=== PATIENT | male | born 1935 | race Caucasian/White ===

== ENCOUNTER → 2017-02-06 | Outpatient (CLI) | payer OTHER ==
[~2017-02-06] VITALS: Ht 170.2 cm; Wt 86.2 kg
[~2017-02-06] MED LIST: ADULT LOW DOSE81 MG PO; AMLODIPINE BESYL5 MG PO; ANSAID100 MG PO; ASPIR 8181 MG PO; CARVEDILOL12.5 MG PO; CENTRUM SILVER1 EAC4 PO; ELIQUIS5 MG PO; ENDOCET 10-3251 EACH PO; FINASTERIDE5 MG PO; LISINOPRIL20 MG PO; LISINOPRIL40 MG PO; MELATONIN 5 MG1 EAC1 PO; MELATONIN3 MG; MULTIPLE VITAM1 EAC4; NEURONTIN 300300 M1 PO; OMEPRAZOLE 20 M20 M1 PO; POTASSIUM GLUC500 MG PO; PRAVASTATIN SOD80 MG PO; PRILOSEC 20 MG20 MG PO; SENOKOT-S1 TA1 PO; SLOW FE142 MG PO; STOOL SOFTENER100 M1 PO; STOOL SOFTENER100 MG PO; TEMAZEPAM15 MG PO; VITAMIN D31000 UNI2 PO; ZOLOFT50 MG PO
--- NOTE | ~2017-02-06 | P ---
[facility] [place] [address] PROCEDURE REPORT Name: JEANETTE AIKEN Room #: REG [facility]#: [id number] Admission: 02/06/17 Attend Phys: Olayinka Byrne MD Discharge: Date of : 39 Report #: [id number] THIS REPORT FOR: //name// CC: Marilyn Byrne OUTPATIENT UPPER ENDOSCOPY REPORT BRIEF HISTORY: The patient is a 81-year-old male who has been treated for an iron deficiency anemia. He was recently found to have Hemoccult positive stool. PREOPERATIVE DIAGNOSES: Anemia and Hemoccult positive stool. POSTOPERATIVE DIAGNOSES: 1. Moderate diffuse gastritis. 2. Small hiatus hernia. MEDICATIONS: Deep sedation with propofol per anesthesia. SPECIMEN: Biopsies of gastritis. ESTIMATED BLOOD LOSS: 3 mL. PROCEDURE: EGD with biopsy. FINDINGS: Prior to propofol sedation, procedure of upper endoscopy discussed with the patient as well as potential risks and its complications. He indicates he understands and desires to proceed. DESCRIPTION OF PROCEDURE: With the patient in left lateral decubitus position, Fuji video endoscope was inserted in the cervical esophagus under direct vision without difficulty. Examination of this organ to its entire length revealed normal esophageal mucosa down the squamocolumnar junction. The squamocolumnar junction was unremarkable. There were no ulcers, erosions or [place] mucosa. No bleeding lesions were seen. A small hiatus hernia was seen. Scope was advanced into the stomach, which was examined on end views as well as retroflexed views. There is a moderate diffuse gastritis with linear configuration, most notable in the antrum of stomach. No ulcers were seen. No bleeding lesions were seen. Upon retroflexion, no mass lesions were seen. The pylorus, duodenal bulb and postbulbar sweep were inspected and noted to be unremarkable. No ulcers were seen. No bleeding lesions were seen. Multiple small bowel biopsies were obtained to evaluate for celiac disease from the duodenum. We also obtained biopsies of gastritis. At that point, the scope was slowly withdrawn, and careful circumferential views confirmed the above findings. The patient tolerated the procedure well. [facility] [address] [place] [address] PROCEDURE REPORT Name: ATTILAJEANETTE J [id number] Admission: 02/06/17 Attend Phys: Olayinka Byrne MD Discharge: Date of : 39 Report #: [id number] CONDITION OF THE PATIENT UPON DISCHARGE: Following procedure, the patient was drowsy and prepared for colonoscopy. Given instructions to the patient and family at the time of discharge. This patient has been on Eliquis. He does take an aspirin daily. He did have Hemoccult positive stools. He has been treated for iron deficiency anemia with iron replacement. No bleeding lesions seen on the upper end. We will proceed with colonoscopy. <ELECTRONICALLY SIGNED> By: Olayinka Byrne MD 02/06/17 1644 [id number] Olayinka Byrne MD /nt
--- NOTE | ~2017-02-06 | P ---
[facility] [place] [address] PROCEDURE REPORT Name: JEANETTE AIKEN Room #: REG [facility]#: [id number] Admission: 02/06/17 Attend Phys: Olayinka Byrne MD Discharge: Date of : 39 Report #: [id number] THIS REPORT FOR: //name// CC: Marilyn Byrne BRIEF HISTORY: The patient is a 81-year-old male who is on Eliquis. He has been recently found to have an anemia, requiring iron replacement. He also was recently found to have Hemoccult positive stools, but no gross rectal bleeding. He does have a history of colon polyps with last colonoscopy in 2011. PREOPERATIVE DIAGNOSES: Hemoccult positive stools and iron deficiency anemia. POSTOPERATIVE DIAGNOSES: 1. A 5-mm polyp, mid transverse colon. 2. Moderate sigmoid diverticulosis coli. 3. Melanosis coli, moderate, diffuse 4. Internal hemorrhoids. MEDICATIONS: Deep sedation with propofol per anesthesia. SPECIMEN: Mid transverse colon polyp. ESTIMATED BLOOD LOSS: 3 mL. PROCEDURE: Colonoscopy to cecum and terminal ileum with snare polypectomy. FINDINGS: Prior to propofol sedation, procedure of colonoscopy discussed with the patient as well as potential risks, benefits, and complications. He indicates he understands and desires to proceed. With the patient in left lateral decubitus position, digital examination was completed, which revealed no abnormalities. Subsequently, the Blast Ramp video colonoscope was introduced into the rectum and advanced under direct vision to the cecum. Done with minimal difficulty. The cecum was identified by the ileocecal valve and the appendiceal orifice. I was able to advance the scope into the mouth of the ileocecal valve and see a villous pattern, but due to angulation, we could not deeply intubate the ileum. At that point, the scope was slowly withdrawn and careful circumferential views were obtained including retroflexing the scope in the ascending colon. Upon slow withdrawal of the scope, the mucosa was inspected. The patient was noted to have a pattern of moderate melanosis coli throughout the entire colon. In addition, as we withdrew the scope, a 5-mm polyp was seen in the mid transverse colon and removed by cold snare polypectomy. The scope was further withdrawn and no additional polypoid lesions were seen. In the left colon, in particularly the sigmoid colon, there was a moderately severe diverticular disease without [address] [address] PROCEDURE REPORT Name: JEANETTE AIKEN Room #: REG [facility]#: [id number] Admission: 02/06/17 Attend Phys: Olayinka Byrne MD Discharge: Date of : 39 Report #: [id number] endoscopic evidence of diverticulitis. Scope was withdrawn in the rectum. Upon retroflexion, [id number] internal hemorrhoids were seen. Scope was withdrawn. The patient tolerated the procedure well. CONDITION OF THE PATIENT UPON DISCHARGE: Following procedure, the patient drowsy, aroused, conversant and will be discharged home when fully ambulatory. INSTRUCTIONS TO THE PATIENT AND FAMILY AT THE TIME OF DISCHARGE: The patient with iron deficiency anemia and Hemoccult positive stools. I do not see a bleeding lesion. He did have a small polyp. Polyp is small, but he is on anticoagulation, it is a potential source of blood loss. Another possibility is hemorrhoids as well. At this point in time, we will follow up on the path report and make further recommendations. However, at this point in life, the patient is not likely to benefit from routine surveillance colonoscopy due to finding of colon polyps. He will follow up with Dr. Marilyn Hernandez to monitor his hemoglobin, iron levels, and iron replacement as needed. If there is further evidence of blood loss or iron deficiency, next GI evaluation would likely be an M2 capsule study of the small bowel. Last colonoscopy was 5 years ago. Withdrawal time from the cecum was 14 minutes. <ELECTRONICALLY SIGNED> By: Olayinka Byrne MD 02/06/17 1644 [id number] Olayinka Byrne MD /nt
== END | disposition home or self-care (01) ==
LOC: GI 07:34
DX: K63.5 Polyp of colon (principal); K57.30 Diverticulosis of large intestine without perforation or abscess without bleeding; K63.89 Other specified diseases of intestine; K64.8 Other hemorrhoids; K29.70 Gastritis, unspecified, without bleeding; K44.9 Diaphragmatic hernia without obstruction or gangrene; G47.33 Obstructive sleep apnea (adult) (pediatric); I10 Essential (primary) hypertension; I48.91 Unspecified atrial fibrillation; K21.9 Gastro-esophageal reflux disease without esophagitis; E78.00 Pure hypercholesterolemia, unspecified; F32.9 Major depressive disorder, single episode, unspecified; Z95.5 Presence of coronary angioplasty implant and graft; Z86.010 Personal history of colon polyps; Z98.890 Other specified postprocedural states; Z96.641 Presence of right artificial hip joint